=== PATIENT | male | born 1980 | race Caucasian/White ===

== ENCOUNTER → 2017-01-28 12:46 | Outpatient (CLI) | payer OTHER ==
--- NOTE | 2017-01-30 07:29 | EEG ---
PATIENT:PAVEL SHELL DATE OF SERVICE: 01/28/17 MEDICAL RECORD: [id number] DATE OF : 84 LOCATION: [facility] ADMISSION DATE: 01/28/17 REFERRING PHYSICIAN: INTERPRETING PHYSICIAN: KRISTI MCCARTY MD DATE OF SERVICE: 01/28/2017 Referred as an outpatient by myself. ELECTROENCEPHALOGRAM NUMBER: [id number] DATE OF EXAMINATION: 01/28/2017 at 1:30 p.m. TECHNICAL DATA: This electroencephalographic recording consists of approximately 20 minutes of data collection utilizing the international 10/20 system of electrode placement and both referential and non-referential montages. Sixteen channels of electrocerebral recording are accompanied by a 17th channel dedicated to the electrocardiographic rhythm and 2 channels of electromyographic recording. Recording is performed in the awake and drowsy states utilizing activation by hyperventilation and photic stimulation. ELECTROENCEPHALOGRAPHIC DATA: The awake state comprises approximately 60% of the recorded electrocerebral activity. Electromyographic artifact is prominent and rapid eye movements are seen. The posterior dominant background consists of a well-developed, symmetric, rhythmic, waxing and waning alpha activity of 10-11 Hz, which is suppressed by eye opening. The drowsy state comprises the remaining portion of the recorded electrocerebral activity. Electromyographic artifact is diminished and rapid eye movements are not seen. Also seen is an intermittent, irregular, generalized and symmetric 3-4 Hz delta slowing, which occurs for periods of 1-2 seconds approximately once every 1-2 pages. No abnormal or focal slowing is identified. No epileptiform discharges are seen. Hyperventilation and photic stimulation induced no abnormal change in the recorded electrocerebral activity. INTERPRETATION: Normal (awake and drowsy). This is a normal electroencephalographic recording. TRANSINT:[id number] Voice Confirmation ID: [id number] DOCUMENT ID: [id number] KRISTI MCCARTY MD at 0729 CC: [id number] DICTATION DATE: 01/29/17719 DOWEL PIN WORKER: 01/29/17 0905 DEP CLI 01/28/17 [id number] [place] [id number]
== END | disposition home or self-care (01) ==
LOC: D.CN 12:46 → D.MRI 14:00
DX: G40.802 Other epilepsy, not intractable, without status epilepticus (principal); G25.3 Myoclonus; F59 Unspecified behavioral syndromes associated with physiological disturbances and physical factors